=== PATIENT | female | born 2000 | race African-American/Black ===

== ENCOUNTER 2020-10-03 00:20 | Emergency (ER) | payer OTHER ==
[~2020-10-03] VITALS: Ht 167.6 cm; Wt 92.5 kg
[2020-10-03] MEDS ORDERED: BACTRIM DS TAB1 EACH PO (01:02)
[2020-10-03] MEDS ORDERED: CEPHALEXIN500 MG PO (01:02)
[2020-10-03 01:10] VITALS: BP 141/78
== END 2020-10-03 01:10 | disposition home or self-care (01) ==
LOC: FSED 00:40
DX: N61.1 Abscess of the breast and nipple (principal)
CPT/HCPCS: 99283